=== PATIENT | female | born 2000 | race Caucasian/White ===

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

== ENCOUNTER 2022-09-20 15:44 | Emergency (ER) | payer MEDICAID ==
[~2022-09-20] VITALS: Ht 167.6 cm; Wt 59.9 kg
[~2022-09-20 15:44] MED LIST changes: +IBUP-2028 MT; -IOHEXOL-300 100 ML BOTTLE ONE; +LIDO1ADH23 TP; +METH-653 MT; -SODIUM CHLORIDE 0.9% 10ML VIAL ONE
[2022-09-20 16:34] LABS: CHLORIDE 101 mEq/L (98-107)
[2022-09-20 16:47] LABS: BASOPHILS % 0.3 % (0.0-2.0); HEMATOCRIT. 41.9 % (36.0-48.0); HEMOGLOBIN. 14.2 g/dL (12.0-16.0); LYMPHOCYTES % 11.1 % (20.0-50.0); MEAN CORPUSCULAR HEMOGLOBIN 27.8 pg (28.0-32.0); MEAN CORPUSCULAR VOLUME 81.8 fL (81.0-99.0); MEAN PLATELET VOLUME 8.9 fl (7.4-10.4); MONOCYTES % 5.5 % (2.0-8.0); NEUTROPHILS % 83.1 % (40.0-76.0); PLATELET 268 x1000/uL (130-400); RED BLOOD CELL COUNT 5.13 mill/uL (4.2-5.4); RED CELL DISTRIBUTION WIDTH 13.6 % (11.6-14.6)
[2022-09-20] MEDS ORDERED: DEXT 5%/LACTATED RINGERS 1,000 ML IV ONE (18:45)
[2022-09-20] MEDS ORDERED: METOCLOPRAMIDE HCL 10MG/2ML VIAL IV ONE (18:45)
[2022-09-20 19:25] LABS: CLARITY URINE TURBID (CLEAR); COLOR URINE DARK YELLOW (YELLOW); KETONES URINE 4+ (NEGATIVE); LEUKOCYTE ESTERASE URINE 2+ (NEGATIVE); NITRITE URINE NEGATIVE (NEGATIVE); OCCULT BLOOD URINE NEGATIVE (NEGATIVE); PH URINE 5.5 (4.5-8.0); PROTEIN URINE 1+ (NEGATIVE); SPECIFIC GRAVITY URINE 1.037 (1.005-1.030)
[2022-09-20] MEDS ORDERED: CEPHALEXIN 250MG CAPSULE PO ONE (20:30)
[2022-09-20] MEDS ORDERED: METOCLOPRAMIDE HCL 10MG/2ML VIAL IV NR (21:00)
[2022-09-20] MEDS ORDERED: CEPH500C2 MT (22:04)
[2022-09-20] MEDS ORDERED: METO-293 MT (22:05)
[2022-09-20 22:15] VITALS: BP 110/60
== END 2022-09-20 22:16 | disposition home or self-care (01) ==
LOC: ER 15:44
DX: O21.0 Mild hyperemesis gravidarum (principal); Z3A.01 Less than 8 weeks gestation of pregnancy
CPT/HCPCS: 36415; 80053; 81003; 81025; 85025; 96374; 99283; J2765; J7121